=== PATIENT | male | born 1960 | race Caucasian/White ===

== ENCOUNTER 2019-07-18 09:56 | Outpatient (CLI) | payer BC, SELFPAY ==
--- NOTE | ~2019-07-18 | CT_ITS ---
EXAMINATION: CT abdomen wo con EXAM DATE: 07/18/2019 10:25 INDICATION: Upper abdominal pain. TECHNIQUE: Spiral CT of the abdomen was performed without contrast. Axial, coronal and sagittal ra ges were reviewed. The dose-length product (DLP) for this examination was 370.82 mGy-cm. The exposu re was tailored according to patient size (auto mA exposure control), and iterative reconstruction (A SIR) was used as additional dose reduction technique. There is no prior study for comparison. FINDINGS: The liver, spleen, adrenal glands and pancreas are unremarkable. Gallbladder is unremarkab le. No biliary obstruction. There is no nephrolithiasis or hydronephrosis. There is no retroperi toneal lymphadenopathy. There is moderate scattered arteriosclerotic disease. There is small umbili shabnam fat-containing hernia. The appendix is normal. The stomach and small bowel are unremarkable. There is expected amount of colonic stool. No free intraperitoneal gas. The heart is normal in size. There are no pericardia l or pleural effusions. The lung bases are unremarkable. There are no osteoblastic or osteolytic le sions identified. IMPRESSION: 1. No acute intra-abdominal findings. 2. Small umbilical hernia. Reviewed, dictated and finalized at location A. 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
== END 2019-07-18 09:57 | disposition home or self-care (01) ==
LOC: ANHIMG 09:57
PROVIDERS: PCP Internal Medicine; Visit Provider Internal Medicine
DX: R10.9 Unspecified abdominal pain (principal); K42.9 Umbilical hernia without obstruction or gangrene
CPT/HCPCS: 74150

== ENCOUNTER 2019-08-06 04:39 | Emergency (ER) | payer BC, SELFPAY ==
[2019-08-06 04:42] VITALS: BP 150/93; PULSE 84; RESP 20; TEMP 36.8; O2SAT 98
--- NOTE | 2019-08-06 04:59 | ED.EYEPROB ---
HPI - Eye Problem General Chief complaint: Eye Problems Stated complaint: eye issue Time Seen by Provider: 08/06/19 04:59 Source: patient and family Mode of arrival: ambulatory Limitations: no limitations History of Present Illness HPI Narrative: 59-year-old with a history of hypertension, hyperlipidemia here with a complaint of foreign body in the right eye for past 6 hours. 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 He states that every time he opens and closes eyes he feels something is in the eye. chief complaint: eye pain, eye redness and foreign body Onset (ago): hour(s) (6) Duration: constant Location: right eye Eye Symptoms: redness and foreign body sensation Place: work Mechanism: none Severity: moderate Severity scale (1-10): 5 Associated symptoms: none Treatments Prior to Arrival: none Related Data Allergies Allergy/AdvReac Type Severity Reaction Status Date / Time No Known Allergies Allergy Verified 08/06/19 04:45 Review of Systems Review of Systems: All systems reviewed & are unremarkable except as noted in HPI and below Constitutional: Constitutional: Reports as per HPI Eyes: Eyes: Reports no additional eye complaints ENT: Reports system reviewed and no additional complaints, except as documented Cardiovascular: Cardiovascular: Reports as per HPI Respiratory: Respiratory: Reports as per HPI Gastrointestinal: Gastrointestinal: Reports no additional gastrointestinal complaints [facility] Family History Family History Grandparent Family history of cardiovascular disease Mother Family history of malignant neoplasm Father Patient's father is in good health Social History Social History Smoking packs per day: 1 Smoking cigarettes per day: 20.0 Smoking status: Current every day smoker Tobacco type: cigarettes Second hand tobacco smoke exposure: Yes Alcohol intake: current Substance use: never Exam Narrative: Exam Narrative: GENERAL: Well-appearing, well-nourished, and in no acute distress. HEAD: Normocephalic, atraumatic. EYES: PERRLA and EOMI.right eye conjuctiva is erythematous increased uptake of fluorescein dye from 6 o'clock position to 9 o'clock position ENT: Nares clear, . Mucous membranes moist. NECK: Supple. CHEST: Clear to auscultation. No respiratory distress. HEART: Regular rate and rhythm. No murmur heard. Normal peripheral pulses.. EXTREMITIES: Normal range of motion. No edema. SKIN: Warm, dry, no rash. NEURO: No focal deficits. Alert and oriented x3. PSYCH: Normal mood and affect. Course Vital Signs Vital signs: Vital Signs Temperature 36.8 C 08/06/19 04:42 Pulse Rate 84 08/06/19 04:42 Respiratory Rate 20 08/06/19 04:42 Blood Pressure 150/93 H 08/06/19 04:42 Pulse Oximetry 98 08/06/19 04:42 Temperature 36.8 C 08/06/19 04:42 Pulse Rate 84 08/06/19 04:42 Respiratory Rate 20 08/06/19 04:42 Blood Pressure 150/93 H 08/06/19 04:42 Pulse Oximetry 98 08/06/19 04:42 Discharge Plan Discharge Clinical Impression: Abrasion, corneal Patient Disposition: Home, Self-Care Condition: Stable Instructions: Antibiotic Form Prescriptions: No Action hydrochlorothiazide 25 mg tablet 25 mg PO DAILY Qty: 90 RF: 3 metoprolol tartrate 50 mg tablet 50 mg PO Q12H Qty: 180 RF: 1 tizanidine 4 mg tablet 4 mg PO TID PRN (Reason: muscle spasticity) Qty: 90 RF: 1 atorvastatin 10 mg tablet 10 mg PO DAILY Qty: 90 RF: 2 zolpidem 10 mg tablet 10 mg PO .QHS Qty: 30 RF: 0 Follow-up/Referrals: Mitchel Flower DO [Primary Care Provider] -
[2019-08-06] MEDS: TOBRAMYCIN/DEXAMETHASONE OP 2.5 ML BTL 1 DROP EACH EYE (05:18)
[2019-08-06 05:22] VITALS: BP 148/82; PULSE 80; RESP 16; TEMP 37.1; O2SAT 100
== END 2019-08-06 05:22 | disposition home or self-care (01) ==
PROVIDERS: Emergency Provider Family Medicine; PCP Internal Medicine
DX: S05.01XA Injury of conjunctiva and corneal abrasion without foreign body, right eye, initial encounter (principal); I10 Essential (primary) hypertension; E78.5 Hyperlipidemia, unspecified; F17.210 Nicotine dependence, cigarettes, uncomplicated; X58.XXXA Exposure to other specified factors, initial encounter
CPT/HCPCS: 99283; A9270

== ENCOUNTER 2019-08-15 01:34 | Day surgery (SDC) | payer BC, SELFPAY ==
[2019-08-11 13:33] VITALS: BMI 24.4
[2019-08-15 06:30] VITALS: BP 148/90; PULSE 68; RESP 18; TEMP 36.7; O2SAT 100
[2019-08-15] MEDS: LACTATED RINGERS 1,000 ML 150 ML IV CONT (06:39)
--- NOTE | 2019-08-15 07:02 | WPDANESEPPF ---
Anes - Initial Pre Proc Eval Procedure: Operation Date: 08/15/19 07:30 Proposed Procedures p Esophagogastroduodenoscopy - Dat Baldwin MD Date/Time: 08/15/19 07:02 Surgeon: Dat Baldwin MD Pre Op Diagnosis: epigastric pain Patient Data Age: 59 Gender: M Height: 6 ft 4 in Weight: 88.7 kg Last Vital Signs Temp 36.7 C 08/15/19 06:30 Pulse 68 08/15/19 06:30 Resp 18 08/15/19 06:30 BP 148/90 H 08/15/19 06:30 Pulse Ox 100 08/15/19 06:30 Allergies Allergy/AdvReac Type Severity Reaction Status Date / Time No Known Allergies Allergy Verified 08/15/19 06:29 Home Medications Medication Instructions Recorded Confirmed Type hydrochlorothiazide 25 mg tablet 25 mg PO DAILY #90 tablet 04/04/19 08/15/19 Rx metoprolol tartrate 50 mg tablet 50 mg PO Q12H #180 tablet 04/11/19 08/11/19 Rx tizanidine 4 mg tablet 4 mg PO TID PRN #90 tablet 05/03/19 08/11/19 Rx atorvastatin 10 mg tablet 10 mg PO DAILY #90 tablet 07/22/19 08/11/19 Rx zolpidem 10 mg tablet 10 mg PO .QHS #30 tablet 07/28/19 08/11/19 Rx Patient hx anesthesia problems: none Family hx anesthesia problems: none PMFSH Social History Social History Smoking packs per day: 1 Smoking cigarettes per day: 20.0 Smoking status: Current every day smoker Tobacco type: cigarettes Second hand tobacco smoke exposure: Yes Alcohol intake: current Substance use: never Gender identity (if verbalized by the patient): Male Anes - Eval Final PreProcedure Day of Procedure 08/15/19 07:02 Patient weight: normal Heart: regular rate and rhythm Lungs: clear to auscultation Airway: Mallampati scale class II Neurological: alert and oriented ASA classification: III Emergent: no Anesthesia type and monitoring: general GIVS and standard monitoring Informed Consent: The patient's anesthetic plan and its attendant risks and benefits were discussed with the patient/family/POA. Questions were solicited and answers provided to the satisfaction of the patient/family/POA.
--- NOTE | 2019-08-15 07:38 | P.CONGI_ITS ---
Assessment and Plan Additional Plan This is a 59-year-old white male patient seen in evaluation at the request of Dr. Lenny Flower. Patient reports at least a 6 month pain of epigastric discomfort. He states that feels sore. Rather constantly uncomfortable. No relation to diet. It appears to worsen when he coughs. He has frequent phlegm production and frequent coughing. Pain seems to intensified during coughing fits. He has taken nonsteroidal anti-inflammatory agents because of foot pain but also because of his epigastric pain. He has not tried antacids. He denies any weight loss. He has not tried an acids. Past medical history is significant for elevated cholesterol, and hypertension. Medications include ibuprofen, aspirin, zolpidem, Tizanitine, metoprolol, hydrochlorothiazide, and atorvastatin family history is noncontributory. Physical exam reveals patient to be alert. Vital signs stable. HEENT exam unremarkable. Lungs are clear to auscultation and percussion. Heart is without murmur or extra sounds. Abdominal exam bowel sounds are present soft nontender with no organomegaly. Digital external rectal exam normal. Impression 1. Epigastric pain. Etiology unclear. Frequent use of nonsteroidal anti-inflammatory agents raises the question of ulcer disease. Pain with coughing raises the question of musculoskeletal pain. Plan is for EGD. Consider trial of an acids. Further recommendations after endoscopy. GI Consult Note Consult date/time: 08/15/19 07:38 HPI: Bill Canseco is a 59 year old male [facility] Social History Social History Smoking packs per day: 1 Smoking cigarettes per day: 20.0 Smoking status: Current every day smoker Tobacco type: cigarettes Second hand tobacco smoke exposure: Yes Alcohol intake: current Substance use: never Gender identity (if verbalized by the patient): Male Meds Home Medications and Allergies Home Medications Medication Instructions Recorded Confirmed Type hydrochlorothiazide 25 mg tablet 25 mg PO DAILY #90 tablet 04/04/19 08/15/19 Rx metoprolol tartrate 50 mg tablet 50 mg PO Q12H #180 tablet 04/11/19 08/11/19 Rx tizanidine 4 mg tablet 4 mg PO TID PRN #90 tablet 05/03/19 08/11/19 Rx atorvastatin 10 mg tablet 10 mg PO DAILY #90 tablet 07/22/19 08/11/19 Rx zolpidem 10 mg tablet 10 mg PO .QHS #30 tablet 07/28/19 08/11/19 Rx Allergies Allergy/AdvReac Type Severity Reaction Status Date / Time No Known Allergies Allergy Verified 08/15/19 06:29 Vital Signs Vital Signs - 24 hr 08/15/19 06:30 Temperature 36.7 C Pulse Rate 68 Respiratory Rate 18 Blood Pressure 148/90 H Pulse Oximetry 100
[2019-08-15 07:55] VITALS: BP 141/81; PULSE 68; RESP 19; O2SAT 99
[2019-08-15 08:05] VITALS: BP 131/93; PULSE 62; RESP 17; O2SAT 97
[2019-08-15 08:15] VITALS: BP 141/93; PULSE 61; RESP 15; O2SAT 98
== END 2019-08-15 08:55 | disposition home or self-care (01) ==
PROVIDERS: PCP Internal Medicine; Visit Provider Internal Medicine Gastroenterology
PROC: 0DJ08ZZ Inspection of Upper Intestinal Tract, Via Natural or Artificial Opening Endoscopic (ICD-10-PCS; CPT 43235; principal; 2019-08-15 07:30)
DX: K21.0 Gastro-esophageal reflux disease with esophagitis (principal); K22.10 Ulcer of esophagus without bleeding; I10 Essential (primary) hypertension; E78.00 Pure hypercholesterolemia, unspecified; F17.210 Nicotine dependence, cigarettes, uncomplicated
CPT/HCPCS: 43235; J2001; J2704; J7120

== ENCOUNTER 2019-11-14 13:42 | Outpatient (CLI) | payer BC, SELFPAY ==
--- NOTE | ~2019-11-14 | US_ITS ---
EXAMINATION: US right upper quadrant DATE: 11/14/2019 14:24 INDICATION: Right upper quadrant abdominal pain. TECHNIQUE: Multiple grayscale and Doppler ultrasound images of the abdomen were obtained. COMPARISON: CT abdomen and pelvis 07/18/2019 FINDINGS: The visualized portions of the head and body of the pancreas are normal. The liver is patrick l without focal lesion. There is normal flow in main portal vein. The gallbladder is normal in size a nd contains sludge. No gallstones or gallbladder wall thickening. There was a positive sonographic Mu rphy sign. The common duct is normal and measures 4 mm. IMPRESSION: 1. Gallbladder sludge and positive sonographic Rosa sign, but no gallstones, gallbladder wall thick ening, or gallbladder distention to suggest acute cholecystitis. Reviewed, dictated and finalized at location A. IMPRESSION: 1. Gallbladder sludge and positive sonographic Rosa sign, but no gallstones, gallbladder wall thickening, or gallbladder distention to suggest acute cholecy stitis.
--- NOTE | ~2019-11-14 | XR_ITS ---
EXAMINATION: XR chest 2V DATE: 11/14/2019 14:31 INDICATION: Cough TECHNIQUE: PA and lateral views of the chest are obtained. COMPARISON: None available FINDINGS: The lungs are free of acute opacities. There is no pleural effusion or pneumothorax. The ca rdiomediastinal silhouette is normal. The visualized bones and soft tissues are unremarkable. IMPRESSION: 1. No acute cardiopulmonary abnormality. Reviewed, dictated and finalized at location A.
== END 2019-11-14 13:43 | disposition home or self-care (01) ==
PROVIDERS: PCP Internal Medicine; Visit Provider Internal Medicine Gastroenterology
DX: R10.11 Right upper quadrant pain (principal)
CPT/HCPCS: 71046; 76705

== ENCOUNTER 2019-11-25 08:05 | Outpatient (CLI) | payer BC, SELFPAY ==
--- NOTE | ~2019-11-25 | NM_ITS ---
EXAMINATION: NM hepatobiliary wo pharm DATE: 11/25/2019 12:30 INDICATION: Right upper quadrant abdominal pain COMPARISON: None. TECHNIQUE: 4.7 mCi Tc-99m mebrofenin (Choletec) was administered intravenously. Scintigraphic images of the abdomen were obtained for one hour. At the 1 hour time point, the patient drank 8 oz Ensure, and imaging was continued for 60 minutes. Gallbladder ejection fraction was calculated by the technol ogist. FINDINGS: There is normal clearance of radiotracer from the blood pool. There is homogeneous tracer u ptake by the liver. Activity progresses to the bowel and gallbladder. The gallbladder ejection fract ion (GBEF) is 51%. Note that with this technique, normal GBEF >= 33%. IMPRESSION: 1. Normal hepatobiliary scan. Reviewed, dictated and finalized at location A.
== END 2019-11-25 08:06 | disposition home or self-care (01) ==
PROVIDERS: PCP Internal Medicine; Visit Provider Internal Medicine Gastroenterology
DX: R10.11 Right upper quadrant pain (principal)
CPT/HCPCS: 78226; A9537

== ENCOUNTER 2020-05-11 02:19 | Outpatient (CLI) | payer BC, SELFPAY ==
[2020-05-11 18:45] LABS: SARS-CoV-2 RNA PCR Negative
== END 2020-05-11 02:20 | disposition home or self-care (01) ==
LOC: ANHCOVIDDT 02:19
PROVIDERS: PCP Internal Medicine; Visit Provider Internal Medicine Gastroenterology
DX: Z01.812 Encounter for preprocedural laboratory examination (principal); Z20.828 Contact with and (suspected) exposure to other viral communicable diseases
CPT/HCPCS: 87635; C9803; U0003

== ENCOUNTER 2020-05-14 01:35 | Day surgery (SDC) | payer BC, SELFPAY ==
[2020-05-08 13:38] VITALS: BMI 23.1
[2020-05-14 08:49] VITALS: BP 137/90; PULSE 71; RESP 18; TEMP 36.6; O2SAT 97
[2020-05-14] MEDS: LACTATED RINGERS 1,000 ML 150 ML IV CONT (08:53)
--- NOTE | 2020-05-14 08:57 | WPDGICN ---
Assessment and Plan Assessment and plan (1) Encounter for screening colonoscopy: Code(s): Z12.11 - Encounter for screening for malignant neoplasm of colon Status: Acute Assessment and Plan: patient has never had a colonoscopy. Because of his age screening colonoscopy advised. (2) Rectal bleeding: Code(s): K62.5 - Hemorrhage of anus and rectum Status: Acute Assessment and Plan: Patient reports recent 1 or 2 episodes of bright red blood per rectum. This will be evaluated by colonoscopy. High-fiber diet advised. (3) Reflux esophagitis: Code(s): K21.00 - Gastro-esophageal reflux disease with esophagitis, without bleeding Status: Acute Assessment and Plan: patient has a history of a esophageal erosions by endoscopy in July of 2019. Suggesting acid reflux. Plan is for long-term use proton pump inhibitors. Elevate head of bed at night no late snacks and bland foods. (4) Elevated LFTs: Code(s): R94.5 - Abnormal results of liver function studies Status: Acute Assessment and Plan: This is resolved. It was felt patient had a brief episode of alcohol-induced hepatitis. Alcohol Avoid is strongly encourage. GI Consult Note Consult date/time: 05/14/20 08:57 HPI: Bill Canseco is a 60 year old male Presents today for colonoscopy. Patient has never had a prior colonoscopy. Screening colonoscopy is advised. Patient reports having had 1 or 2 episodes of recent bright red blood per rectum. He denies any abdominal or rectal pain. The bleeding has subsequently abated. He states his current weight appetite bowel movements are normal. Patient's past medical history is significant for a bout of alcohol-induced hepatitis in November that has subsequently resolved. He has a history of acid reflux and esophageal erosions. Currently being treated with Prilosec 20 mg p.o. b.i.d.. He no longer has heartburn or indigestion. He denies any bleeding or weight loss. His appetite is good. Family history is noncontributory. Review of Systems Review of Systems: All systems reviewed & are unremarkable except as noted in HPI and below PMFSH Family History Family History Grandparent Family history of cardiovascular disease Mother Family history of malignant neoplasm Father Patient's father is in good health Social History Social History Smoking packs per day: 1 Smoking cigarettes per day: 20.0 Years smoked: 40 Smoking pack-years: 40.00 Smoking status: Current every day smoker Tobacco type: cigarettes Second hand tobacco smoke exposure: Yes Alcohol intake: current Drinks per week: 20 Alcohol use details: 4-5 beers a night Substance use: never Living arrangements: with family Gender identity (if verbalized by the patient): Male Spiritual care concerns: No Meds Home Medications and Allergies Home Medications Medication Instructions Recorded Confirmed Type omeprazole 20 mg capsule,delayed 40 mg PO DAILY 10/31/19 05/08/20 History release tizanidine 4 mg tablet 4 mg PO TID PRN #90 tablet 03/12/20 05/08/20 Rx hydrochlorothiazide 25 mg tablet 25 mg PO DAILY #90 tablet 03/28/20 05/08/20 Rx atorvastatin 10 mg tablet 10 mg PO DAILY #90 tablet 04/19/20 05/08/20 Rx metoprolol tartrate 50 mg PO BID 05/08/20 05/14/20 History zolpidem 10 mg tablet 10 mg PO .QHS PRN #18 tablet 05/14/20 05/14/20 Rx Allergies Allergy/AdvReac Type Severity Reaction Status Date / Time No Known Allergies Allergy Verified 05/14/20 08:48 Vital Signs Vital Signs - 24 hr 05/14/20 08:49 Temperature 97.9 F Pulse Rate 71 Respiratory Rate 18 Blood Pressure 137/90 Pulse Oximetry 97 Exam Narrative: Exam Narrative: Physical exam reveals patient to be alert. Vital signs stable. HEENT exam unremarkable. Patient is anict
--- NOTE | 2020-05-14 09:40 | WPDANESEPPF ---
Anes - Initial Pre Proc Eval Procedure: Operation Date: 05/14/20 10:00 Proposed Procedures p Colonoscopy - Dat Baldwin MD Date/Time: 05/14/20 09:40 Surgeon: Dat Baldwin MD Pre Op Diagnosis: Rectal Bleeding Patient Data Age: 60 Gender: M Height: 6 ft 4 in Weight: 85.3 kg Last Vital Signs Temp 36.6 C 05/14/20 08:49 Pulse 71 05/14/20 08:49 Resp 18 05/14/20 08:49 BP 137/90 05/14/20 08:49 Pulse Ox 97 05/14/20 08:49 Allergies Allergy/AdvReac Type Severity Reaction Status Date / Time No Known Allergies Allergy Verified 05/14/20 08:48 Home Medications Medication Instructions Recorded Confirmed Type omeprazole 20 mg capsule,delayed 40 mg PO DAILY 10/31/19 05/08/20 History release tizanidine 4 mg tablet 4 mg PO TID PRN #90 tablet 03/12/20 05/08/20 Rx hydrochlorothiazide 25 mg tablet 25 mg PO DAILY #90 tablet 03/28/20 05/08/20 Rx atorvastatin 10 mg tablet 10 mg PO DAILY #90 tablet 04/19/20 05/08/20 Rx metoprolol tartrate 50 mg PO BID 05/08/20 05/14/20 History zolpidem 10 mg tablet 10 mg PO .QHS PRN #18 tablet 05/14/20 05/14/20 Rx Patient hx anesthesia problems: none Family hx anesthesia problems: none PMFSH Family History Family History Grandparent Family history of cardiovascular disease Mother Family history of malignant neoplasm Father Patient's father is in good health Social History Social History Smoking packs per day: 1 Smoking cigarettes per day: 20.0 Years smoked: 40 Smoking pack-years: 40.00 Smoking status: Current every day smoker Tobacco type: cigarettes Second hand tobacco smoke exposure: Yes Alcohol intake: current Drinks per week: 20 Alcohol use details: 4-5 beers a night Substance use: never Living arrangements: with family Gender identity (if verbalized by the patient): Male Spiritual care concerns: No Anes - Eval Final PreProcedure Day of Procedure 05/14/20 09:40 Patient weight: normal and super morbidly obese Lungs: clear to auscultation Airway: Mallampati scale class II Neurological: alert and oriented Last oral intake: >/= 8 hours ASA classification: III Emergent: no Anesthetic plan: proceed Anesthesia type and monitoring: general GIVS and standard monitoring Informed Consent: The patient's anesthetic plan and its attendant risks and benefits were discussed with the patient/family/POA. Questions were solicited and answers provided to the satisfaction of the patient/family/POA.
[2020-05-14 10:42] VITALS: BP 104/76; PULSE 76; RESP 19; O2SAT 100
[2020-05-14 10:52] VITALS: BP 123/88; PULSE 63; RESP 20; O2SAT 100
[2020-05-14 11:02] VITALS: BP 136/84; PULSE 57; RESP 20; O2SAT 100
== END 2020-05-14 11:17 | disposition home or self-care (01) ==
PROVIDERS: PCP Internal Medicine; Visit Provider Internal Medicine Gastroenterology
PROC: 0DJD8ZZ Inspection of Lower Intestinal Tract, Via Natural or Artificial Opening Endoscopic (ICD-10-PCS; CPT 45378; principal; 2020-05-14 10:00)
DX: Z12.11 Encounter for screening for malignant neoplasm of colon (principal); K21.00 Gastro-esophageal reflux disease with esophagitis, without bleeding; D12.5 Benign neoplasm of sigmoid colon; K63.5 Polyp of colon; R94.5 Abnormal results of liver function studies; K62.5 Hemorrhage of anus and rectum; F17.210 Nicotine dependence, cigarettes, uncomplicated; K64.8 Other hemorrhoids; K57.30 Diverticulosis of large intestine without perforation or abscess without bleeding
CPT/HCPCS: 45385; 88305; J2704; J7120

== ENCOUNTER 2023-01-27 14:25 | Outpatient (NON) | payer BC, SELFPAY | END 2023-01-27 14:26 | disposition home or self-care (01) | LOC: ANHLAB 01-28 14:28 | PROVIDERS: PCP Internal Medicine; Visit Provider Nurse Practitioner | DX: L82.0 Inflamed seborrheic keratosis (principal); I78.1 Nevus, non-neoplastic; L57.8 Other skin changes due to chronic exposure to nonionizing radiation; Q82.8 Other specified congenital malformations of skin | CPT/HCPCS: 88305 ==

== ENCOUNTER 2024-10-21 12:09 | Outpatient (CLI) | payer BC, SELFPAY ==
--- OUTSIDE RECORDS SUMMARY | 2024-10-21 12:12 | XMS_ITS | Continuity of Care Document ---
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 No Information Jan- 4-200 7 Box OD Dat. [address] , [address], [place], [address], [place]. tel:[phone] Family History Family Member Type Diagnosis Age At Onset No Information Payers Payer name Insurance type Covered constitution party ID Authoriza tidom(s) [facility] CI [id number] Social History Type Description Quantity Date Captured [...]
[2024-10-21 12:21] LABS: Hematocrit 49.3 % (40.0-54.0); Hemoglobin 16.7 g/dL (14.0-18.0); Mean Corpuscular HGB Conc 33.9 g/dL (32-36); Mean Corpuscular Hemoglobin 31.3 pg (27.0-31.0); Mean Corpuscular Volume 92.3 fL (78.0-102.0); Mean Platelet Volume 9.7 fl (8.7-11.0); Platelet Count Result 273 K/mm3 (150-420); Red Blood Count 5.34 M/mm3 (4.70-6.10); Red Cell Distribution Width 12.8 % (11.6-14.4); White Blood Count 9.2 K/mm3 (4.8-10.8)
[2024-10-21 13:01] LABS: Add Urine Microscopic? NO; Appearance Urine Clear (Clear); Bilirubin Urine Negative (Negative); Blood Urine Negative (Negative); Color Urine Light Yellow (Yellow); Glucose Urine UA Negative (Negative); Ketones Urine Negative (Negative); Leukocyte Esterase Ur Negative (Negative); Nitrate Urine Negative (Negative); Protein Urine Negative (Negative); Specific Grav Ur 1.015 (1.010-1.020); Urobilinogen Urine 0.2 mg/dL (0.2-1.0); pH Urine 6.5 (5.0-8.0)
[2024-10-21 13:18] LABS: Alanine Aminotransferase 22 U/L (6-50); Albumin Level 4.6 g/dL (3.5-5.1); Alkaline Phosphatase 64 U/L (38-126); Amylase 56 U/L (30-110); Anion Gap 2 mmol/L (4-12); Aspartate Amino Transferase 27 U/L (17-59); Bilirubin,Total 0.8 mg/dL (0.2-1.3); Blood Urea Nitrogen 12 mg/dL (9-20); CRP < 0.5 mg/dL (<1.0); Calcium 9.2 mg/dL (8.4-10.2); Carbon Dioxide 37 mmol/L (22-30); Chloride 99 mmol/L (98-107); Estimated Glomerular Filt Rate > 60; Glucose 94 mg/dL (65-110); Lipase 60 U/L (23-300); Magnesium 2.2 mg/dL (1.6-2.3); Osmolality Calculated 285 mOsm/kg (285-295); Phosphorus 4.1 mg/dL (2.5-4.5); Potassium 4.1 mmol/L (3.4-5.0); Sodium 138 mmol/L (137-145); Total Protein 7.3 g/dL (6.3-8.2)
== END 2024-10-21 12:10 | disposition home or self-care (01) ==
LOC: CHSLAB 12:10
PROVIDERS: PCP Internal Medicine; Visit Provider Internal Medicine
DX: R10.9 Unspecified abdominal pain (principal)
CPT/HCPCS: 36415; 80053; 81003; 82150; 83690; 83735; 84100; 84443; 85027; 86140

== ENCOUNTER 2024-12-05 11:46 | Outpatient (CLI) | payer BC, SELFPAY ==
--- NOTE | ~2024-12-05 | XR_ITS ---
Cervical Spine: AP, lateral, open-mouth views Clinical History: Pain Findings: There is reversal normal cervical lordosis. No fracture or subluxation. There is severe deg enerative disc narrowing at C4-C5, C5 and C6, C6 and C7. There is moderate to advanced facet arthropa thy throughout cervical spine. Pre-vertebral soft tissues are unremarkable. Impression: Advanced degenerative spondylosis, as above, with reversal of the normal cervical lordosis. Reviewed, dictated and finalized at location M. Impression: Advanced degenerative spondylosis, as above, with reversal of the normal cervic al lordosis.
--- NOTE | ~2024-12-05 | XR_ITS ---
Lumbosacral Spine: AP and lateral views Clinical History: Pain Findings: The normal lordotic curve is maintained. No fracture or subluxation. There is advanced dege nerative disc narrowing at L5-S1. There is advanced facet arthropathy at L4-L5 and L5-S1. There is mo derate degenerative disc narrowing at L2-L3. The sacroiliac joints are normally outlined. Impression: Advanced degenerative spondylosis of the lower lumbar spine, as detailed above. Reviewed, dictated and finalized at location M. Impression: Advanced degenerative spondylosis of the lower lumbar spine, as detailed above.
== END 2024-12-05 11:47 | disposition home or self-care (01) ==
PROVIDERS: PCP Internal Medicine; Visit Provider Internal Medicine
DX: M54.2 Cervicalgia (principal); M54.50 Low back pain, unspecified; M43.06 Spondylolysis, lumbar region; M43.02 Spondylolysis, cervical region
CPT/HCPCS: 72040; 72100

== ENCOUNTER 2024-12-16 09:43 | Outpatient (CLI) | payer BC, SELFPAY ==
--- NOTE | ~2024-12-16 | CT_ITS ---
CT of the Abdomen: Indication: Epigastric pain Technique: 2.5 mm axial scans were obtained through the abdomen following intravenous administration of 100 cc of Omnipaque 350. Dose reduction technique was used on this scan by utilizing automated ex posure control and iterative reconstruction technique. The dose-length product (DLP) was 349.76 mGy-c m. Findings: Scans through the lung bases are unremarkable. The liver, spleen, pancreas, gallbladder, adrenals and kidneys are within normal limits. There are at herosclerotic calcifications of the aorta. No lymphadenopathy. Visual is bowel loops are unremarkable. No ascites. Impression: No acute process. Extensive atherosclerotic calcification of the aorta and visualized iliac vessels. Reviewed, dictated and finalized at location M. Impression: No acute process. Extensive atherosclerotic calcification of the aorta and visu alized iliac vessels.
[2024-12-16 10:05] LABS: Estimated Glomerular Filt Rate > 60
== END 2024-12-16 09:44 | disposition home or self-care (01) ==
PROVIDERS: PCP Internal Medicine; Visit Provider Internal Medicine
DX: I70.0 Atherosclerosis of aorta (principal); R10.11 Right upper quadrant pain
CPT/HCPCS: 74160; Q9967

== ENCOUNTER 2025-02-08 10:16 | Outpatient (CLI) | payer BC, SELFPAY ==
--- NOTE | 2025-02-08 | CONSULT_PTH ---
PATIENT: Bill Canseco LOC: [facility]#:[id number] AGE/SX: 64/M ROOM: RE02/08/[address]: Abram Contreras MD : 1960 BED: DIS: 02/08/2025 SPEC #: [id number] RECD: 02/08/25 11:14 STATUS: BHANU REQ #: [id number] ABEL: 02/08/25 00:[address]: Abram Contreras DEPT: [facility] Consult RECD BY: Matilda Bassett MLT, ([facility]) Tissues: A - Peripheral Smear Procedures: Hematology Consult
--- NOTE | ~2025-02-08 | XR_ITS ---
EXAMINATION: XR chest 2V, 02/08/2025 10:50 CDT HISTORY: COUGH/FEVER COMPARISON: No comparisons available. Technique: 2 views obtained. Findings: The lungs are clear, no effusion. No pneumothorax. Heart is normal size. Mediastinal and hilar contours are within normal limits. Bony thorax no acute abnormality. Impression: No acute cardiopulmonary abnormality. Reviewed, dictated and finalized at location A. Impression: No acute cardiopulmonary abnormality.
[2025-02-08 10:56] LABS: Appearance Urine Clear (Clear); Glucose Urine UA Negative (Negative); Leukocyte Esterase Ur Negative (Negative); Nitrate Urine Positive (Negative); Specific Grav Ur 1.025 (1.010-1.020)
[2025-02-08 10:57] LABS: Hematocrit 43.7 % (40.0-54.0); Hemoglobin 14.7 g/dL (14.0-18.0); Mean Corpuscular HGB Conc 33.6 g/dL (32-36); Mean Corpuscular Hemoglobin 31.5 pg (27.0-31.0); Mean Corpuscular Volume 93.8 fL (78.0-102.0); Platelet Count Result 276 K/mm3 (150-420); Red Blood Count 4.66 M/mm3 (4.70-6.10); White Blood Count 24.1 K/mm3 (4.8-10.8)
[2025-02-08 11:05] LABS: Add Urine Microscopic? YES
[2025-02-08 11:12] LABS: Band Neutrophils Percent 0 % (0-6); Eosinophils Absolute Manual 0.48 K/mm3 (0.02-0.50); Eosinophils Percent Manual 2 % (1-6); Lymphocytes Absolute Manual 1.68 K/mm3 (1.1-4.5); Lymphocytes Percent Manual 7 % (18-44); Monocytes Absolute Manual 2.16 K/mm3 (0.1-0.90); Monocytes Percent Manual 9 % (3-9); Neutrophils Absolute Manual 19.76 K/mm3 (1.3-6.7); Neutrophils Percent Manual 82 % (46-73); Total Cells Counted 100
[2025-02-08 11:25] LABS: Alanine Aminotransferase 22 U/L (6-50); Albumin Level 4.5 g/dL (3.5-5.1); Alkaline Phosphatase 89 U/L (38-126); Anion Gap 13 mmol/L (4-12); Aspartate Amino Transferase 25 U/L (17-59); Bilirubin,Total 1.1 mg/dL (0.2-1.3); Blood Urea Nitrogen 16 mg/dL (9-20); CRP > 9.0 mg/dL (<1.0); Calcium 9.7 mg/dL (8.4-10.2); Carbon Dioxide 32 mmol/L (22-30); Chloride 94 mmol/L (98-107); Estimated Glomerular Filt Rate > 60; Glucose 99 mg/dL (65-110); Osmolality Calculated 289 mOsm/kg (285-295); Potassium 4.4 mmol/L (3.4-5.0); Sodium 139 mmol/L (137-145); Total Protein 7.4 g/dL (6.3-8.2)
[2025-02-08 11:49] LABS: Toxigenic C. Diff POSITIVE (NEGATIVE)
== END 2025-02-08 10:17 | disposition home or self-care (01) ==
LOC: CHSLAB 10:17
PROVIDERS: PCP Internal Medicine; Visit Provider Internal Medicine
DX: R05.9 Cough, unspecified (principal); R19.7 Diarrhea, unspecified; R50.9 Fever, unspecified
CPT/HCPCS: 36415; 71046; 80053; 81001; 85025; 86140; 87045; 87046; 87177; 87427; 87493

== ENCOUNTER 2025-02-15 08:41 | Outpatient (CLI) | payer BC, SELFPAY ==
--- OUTSIDE RECORDS SUMMARY | 2007-02-02 11:18 | XMS_ITS | Continuity of Care Document ---
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, [id number] [place] [address] [address], [place], [place], [id number], [place] tel:[phone] [facility] No Information Jan- 4-200 7 Box OD Dat. [address] , [address], [place], [address], [place]. tel:[phone] Family History Family Member Type Diagnosis Age At Onset No Information Payers Payer name Insurance type Covered alliance party ID Authoriza tidom(s) [facility] CI [id number] Social History Type Description Quantity Date Captured Comments Sex Male Smoking Status No Information Chief Complaint And Reason For Visit No Information Reason For Referral Reason For Referral No Information History Of Present Illness Encounter Date Complaint History Of Prese nt Illness No Information Functional Status Date Functional Assessmen t No Information Instructions Date Instruction Additional Infor mation No Information Assessments Type Assessment Date No Information Patient Care Teams Name Effective Dates (start - stop) Status Members No Information
[2025-02-15 08:52] LABS: Hematocrit 45.0 % (40.0-54.0); Hemoglobin 15.0 g/dL (14.0-18.0); Mean Corpuscular HGB Conc 33.3 g/dL (32-36); Mean Corpuscular Hemoglobin 31.3 pg (27.0-31.0); Mean Corpuscular Volume 93.9 fL (78.0-102.0); Platelet Count Result 343 K/mm3 (150-420); Red Blood Count 4.79 M/mm3 (4.70-6.10); White Blood Count 13.4 K/mm3 (4.8-10.8)
[2025-02-15 09:30] LABS: Alanine Aminotransferase 26 U/L (6-50); Albumin Level 4.4 g/dL (3.5-5.1); Alkaline Phosphatase 100 U/L (38-126); Anion Gap 11 mmol/L (4-12); Aspartate Amino Transferase 29 U/L (17-59); Bilirubin,Total 0.4 mg/dL (0.2-1.3); Blood Urea Nitrogen 12 mg/dL (9-20); Calcium 9.9 mg/dL (8.4-10.2); Carbon Dioxide 30 mmol/L (22-30); Chloride 99 mmol/L (98-107); Estimated Glomerular Filt Rate > 60; Glucose 107 mg/dL (65-110); Osmolality Calculated 289 mOsm/kg (285-295); Sodium 140 mmol/L (137-145); Total Protein 7.9 g/dL (6.3-8.2)
[2025-02-15 09:38] LABS: Potassium 6.0 mmol/L (3.4-5.0)
== END 2025-02-15 08:42 | disposition home or self-care (01) ==
LOC: CHSLAB 08:43
PROVIDERS: PCP Internal Medicine; Visit Provider Internal Medicine
DX: R05.2 Subacute cough (principal)
CPT/HCPCS: 36415; 80053; 85027

== ENCOUNTER 2025-02-27 14:25 | Outpatient (CLI) | payer BC, SELFPAY ==
[2025-02-27 14:41] LABS: Hematocrit 45.6 % (40.0-54.0); Hemoglobin 15.1 g/dL (14.0-18.0); Mean Corpuscular HGB Conc 33.1 g/dL (32-36); Mean Corpuscular Hemoglobin 31.1 pg (27.0-31.0); Mean Corpuscular Volume 93.8 fL (78.0-102.0); Platelet Count Result 247 K/mm3 (150-420); Red Blood Count 4.86 M/mm3 (4.70-6.10); White Blood Count 14.2 K/mm3 (4.8-10.8)
[2025-02-27 15:05] LABS: Alanine Aminotransferase 22 U/L (6-50); Albumin Level 4.5 g/dL (3.5-5.1); Alkaline Phosphatase 75 U/L (38-126); Anion Gap 10 mmol/L (4-12); Aspartate Amino Transferase 24 U/L (17-59); Bilirubin,Total 0.7 mg/dL (0.2-1.3); Blood Urea Nitrogen 13 mg/dL (9-20); CRP > 9.0 mg/dL (<1.0); Calcium 9.8 mg/dL (8.4-10.2); Carbon Dioxide 32 mmol/L (22-30); Chloride 97 mmol/L (98-107); Estimated Glomerular Filt Rate > 60; Glucose 98 mg/dL (65-110); Osmolality Calculated 288 mOsm/kg (285-295); Potassium 3.9 mmol/L (3.4-5.0); Sodium 139 mmol/L (137-145); Total Protein 8.4 g/dL (6.3-8.2)
[2025-02-27 16:08] LABS: Toxigenic C. Diff POSITIVE (NEGATIVE)
== END 2025-02-27 14:26 | disposition home or self-care (01) ==
LOC: CHSLAB 14:27
PROVIDERS: PCP Internal Medicine; Visit Provider Internal Medicine
DX: R19.7 Diarrhea, unspecified (principal)
CPT/HCPCS: 36415; 80053; 85027; 86140; 87493